=== PATIENT | female | born 1975 | race Two or more races ===

== ENCOUNTER 2023-01-29 12:40 | Inpatient (IN) | payer OTHER ==
[~2023-01-29] VITALS: Ht 157.5 cm; Wt 93.9 kg
[2023-01-30] MEDS ORDERED: TOPROL XL25 M1 PO (12:50)
[2023-02-04] MEDS ORDERED: PANTOPRAZOLE SO40 MG (08:28)
[2023-02-06] MEDS ORDERED: IBUPROFEN800 MG PO (07:37)
[2023-02-06] MEDS ORDERED: GABAPENTIN300 MG PO (07:37)
== END 2023-02-06 09:30 | disposition home or self-care (01) | DRG 743 ==
LOC: O/R 02-04 06:33 → SURG 02-04 07:00 → OB/GYN 02-04 11:50
PROVIDERS: ADMIT Obstetrics & Gynecology Gynecology; ATTEND Obstetrics & Gynecology Gynecology
PROC: 0UT70ZZ Resection of Bilateral Fallopian Tubes, Open Approach (ICD-10-PCS; 2023-02-04)
PROC: 0UT90ZZ Resection of Uterus, Open Approach (ICD-10-PCS; principal; 2023-02-04 07:00)
DX: N84.0 Polyp of corpus uteri (principal); N84.1 Polyp of cervix uteri; N80.03 Adenomyosis of the uterus; N72 Inflammatory disease of cervix uteri; Z20.822 Contact with and (suspected) exposure to COVID-19